=== PATIENT | male | born 1960 | race Caucasian/White ===

== ENCOUNTER 2022-03-07 15:46 | Emergency (ER) | payer BC ==
[2022-03-07 18:02] LABS: CARBON DIOXIDE,CO2 24.3 mmol/L (21.0-32.0); POTASSIUM,K 4.1 mmol/L (3.5-5.1)
[2022-03-07 18:15] LABS: ACETAMINOPHEN 29.6 ug/mL
[2022-03-07] MEDS ORDERED: Calcium Carbonate 500 MG Tab.Chew PO ONE (19:21)
== END 2022-03-07 19:59 ==
LOC: MW.ED 15:46
DX: R74.01 Elevation of levels of liver transaminase levels (principal); E83.51 Hypocalcemia; I10 Essential (primary) hypertension; Z20.822 Contact with and (suspected) exposure to COVID-19
CPT/HCPCS: 36415; 80053; 80143; 80179; 80305; 80307; 81001; 83735; 84443; 85025; 87635; 93005; 99285; A9270; 93010; U0002